=== PATIENT | male | born 1965 | race Caucasian/White ===

== ENCOUNTER 2019-07-02 00:19 | Emergency (ER) | payer MEDICAID ==
[~2019-07-02] VITALS: Ht 180.3 cm; Wt 97.5 kg
--- NOTE | 2019-07-02 00:38 | NUR ---
Dr. Herring at bedside for MSE.
[2019-07-02] MEDS ORDERED: MORPHINE SULFATE 4 MG/1 ML DISP.SYRIN IM ONE (00:45)
[2019-07-02] MEDS ORDERED: MORPHINE SULFATE 4 MG/1 ML DISP.SYRIN ONE (00:47)
--- NOTE | 2019-07-02 01:02 | NUR ---
Pt out of ER for CT.
--- NOTE | 2019-07-02 01:20 | NUR ---
Pt back to ER from CT.
--- NOTE | 2019-07-02 01:40 | NUR ---
Pt states unable to provide urine at this time, provided with a urinal.
--- NOTE | 2019-07-02 02:11 | NUR ---
Pt still unable to provide urine, states he just wants to go home since the result of his CT is negative. made aware.
--- NOTE | 2019-07-02 02:20 | NUR ---
Patient discharged to home in stable condition. Written and verbal after care instructions given. Patient verbalizes understanding of instructions. Stressed follow up or return to ER for worsening s/s. Pt ambulated out of ER with steady gait, no acute signs of distress, VSS, all belongings taken.
[2019-07-02 02:25] VITALS: BP 140/76
== END 2019-07-02 02:25 | disposition home or self-care (01) ==
LOC: ER 00:25
DX: R10.9 Unspecified abdominal pain (principal); I31.3 Pericardial effusion (noninflammatory); E78.5 Hyperlipidemia, unspecified; Z87.442 Personal history of urinary calculi; Z90.79 Acquired absence of other genital organ(s); K57.30 Diverticulosis of large intestine without perforation or abscess without bleeding
CPT/HCPCS: A4663; J2270